=== PATIENT | male | born 1985 | race Two or more races ===

== ENCOUNTER 2020-11-19 09:02 | Emergency (ER) | payer OTHER ==
[~2020-11-19] VITALS: Ht 170.2 cm; Wt 117.0 kg
[2020-11-19 09:10] VITALS: BP 152/87
[2020-11-19] MEDS ORDERED: METHOCARBAMOL 750 MG TABLET ONE ×2 (09:58)
[2020-11-19] MEDS ORDERED: KETOROLAC 60 MG/2 ML ONE (09:58)
[2020-11-19] MEDS ORDERED: KETOROLAC 60 MG/2 ML IM ONE (10:30)
[2020-11-19] MEDS ORDERED: METHOCARBAMOL 750 MG TABLET PO ONE (10:30)
== END 2020-11-19 10:56 | disposition home or self-care (01) ==
LOC: ED 09:33
DX: S39.012A Strain of muscle, fascia and tendon of lower back, initial encounter (principal); S39.011A Strain of muscle, fascia and tendon of abdomen, initial encounter; X58.XXXA Exposure to other specified factors, initial encounter; Y93.89 Activity, other specified; Y92.89 Other specified places as the place of occurrence of the external cause; Y99.8 Other external cause status
CPT/HCPCS: 96372; 99283; J1885